=== PATIENT | female | born 1975 | race Caucasian/White ===

== ENCOUNTER 2017-01-12 03:16 | Observation (INO) ==
[2017-01-12] MEDS ORDERED: Ondansetron 4 MG/2 ML VIAL IVP ONE ×2 (03:49→18:34)
[2017-01-12] MEDS ORDERED: 0.9 % Sodium Chloride 1,000 ML IVC ONE (03:49)
[2017-01-12] MEDS ORDERED: *HR* Morphine 2 MG/ML SYRINGE IVP ONE (03:59)
[2017-01-12 04:32] LABS: Basophils % 0.4 %; Eosinophils % 0.2 %; Hematocrit 47.2 % (35.3-44.9); Hemoglobin 15.9 g/dL (11.5-15.4); Immature Granulocytes % 0.3 % (0-4); Lymphocytes # 1.4 K/mcL (0.6-4.6); Lymphocytes % 13.7 %; Mean Corpuscular HGB Conc 33.7 g/dL (31.6-35.5); Mean Corpuscular Volume 83.2 fL (83.0-100.0); Mean Platelet Volume 9.8 fL (9.4-12.4); Monocytes # 0.6 K/mcL (0.0-1.3); Monocytes % 5.5 %; Neutrophils # 8.2 K/mcL (1.6-8.9); Platelet Count 306 K/mcL (140-400); Red Blood Count 5.67 M/mcL (3.82-4.97); Red Cell Distribution Width 12.7 % (11.5-14.5); Segmented Neutrophils % 79.9 %
--- NOTE | 2017-01-12 04:41 | Emergency Department Note ---
Disposition Clinical Impression: Kidney stones, Hydronephrosis due to obstruction of ureter Disposition: Admitted As Inpatient Condition: Fair Time of Disposition: 05:58 Abdominal Pain HPI - General Chief Complaint: ED Abdominal Pain Stated Complaint: RLQ Pain Time Seen by Provider: 01/12/17 03:28 Source: patient Nursing Notes Reviewed: Yes Vital Signs Reviewed: Yes - History of Present Illness HPI Narrative: 42-year-old female presents the ED complaining of right lower quadrant pain. She stated that she was at work when all essentially had a sudden sharp right lower quadrant pain that is worse when she moves. She states it is 8 out of 10 and is nonradiating. She has tried taking Tylenol for the pain does not help. She she works at the [employer] stated that medical staff saw her there and recommended her come by EMS she denied that and said that she would have family drive her to the emergency department. She states nausea when the pain is really bad but no vomiting. She states no chest pain or shortness of breath. No fevers, burning with urination, diarrhea, constipation. She has not only had her tubes tied as her only abdominal surgery. She still has her appendix and gallbladder. She does not state that the pain is worse after meals. Pain Scale: 8 - Related Data Previous Rx's Medication Instructions Recorded Ibuprofen [Motrin] 400 mg PO Q6HR 7 Days 04/07/15 LORazepam [Ativan] 0.5 mg PO TID PRN #20 tablet 01/22/16 Amoxicillin 875 mg PO BID #20 tablet 08/14/16 Allergies Allergy/AdvReac Type Severity Reaction Status Date / Time losartan [From Cozaar] Allergy Hives Verified 01/12/17 03:20 Constitutional: Denies: fever, chills, weakness, weight change Eyes: Denies: eye pain, eye discharge, vision change ENT ED: Denies: ear pain, throat pain, dental pain, hearing loss, epistaxis, congestion, dysphagia Cardiovascular: Denies: chest pain, palpitations, dyspnea on exertion, edema, syncope Respiratory: Denies: cough, dyspnea, wheezes, hemoptysis, stridor Gastrointestinal: Reports: abdominal pain, nausea. Denies: vomiting, diarrhea, constipation, hematemesis, melena, hematochezia Genitourinary: Denies: dysuria, frequency, hematuria, discharge Musculoskeletal: Denies: back pain, neck pain, arthralgia, myalgia Integumentary: Denies: rash, abrasion, lesions Neurological: Denies: headache, weakness, numbness, paresthesias, confusion, abnormal gait, vertigo Psychiatric: Denies: anxiety, depression, suicidal thoughts, homicidal thoughts , auditory hallucinations, visual hallucinations Endocrine: Denies: fatigue Hematological/Lymphatic: Denies: easy bleeding, easy bruising Abdominal Pain PMH - Past Medical History Medical history: Reports: hypertension, other Female Surgical History: Reports: other Psychiatric history: Reports: anxiety, depression - Social History Smoking status: Never smoker Alcohol use: Reports: none Drug use: Reports: none Physical Exam - General General appearance: alert - Head Head exam: atraumatic, normocephalic, normal inspection - Eye Eye exam: Present: normal appearance, PERRL, EOMI - ENT ENT exam: normal exam, normal oropharynx, mucous membranes moist - Chest Chest inspection: Present: normal inspection, symmetric chest wall rise - Respiratory Respiratory exam: Present: normal lung sounds bilaterally - Cardiovascular Cardiovascular exam: Present: regular rate, normal rhythm, normal heart sounds - Abdominal Exam Abdominal exam: Present: soft, tenderness, normal bowel sounds, Lewis's sign, Rovsing's sign, tenderness at McBurney's Point. Absent: distention, guarding, rebound, rigidity Abdominal tenderness: Present: RLQ, moderate - Back Exam Back exam: Present: normal inspection, full ROM. Absent: tenderness, CVA tenderness (R), CVA tenderness (L) - Neurological Exam Neurological exam: Present: alert, oriented X3 - Skin Skin exam: Present: warm, dry, intact, normal color Course Course Narrative: 42-year-old female presents to the ED complaining of right lower quadrant pain that began all of a sudden. She still has all of her organs in her belly. We will do belly labs including lipase. We will also do urine and . We will start an IV and give her 1 L bag of fluids and Zofran for nausea and 2 mg of morphine for pain control. Severity CT of her abdomen and pelvis with contrast to look for possible appendicitis or any gallbladder pathology. Patient is okay with this plan. - Reevaluation(s) Reevaluation #1: Patient reevaluated after she got up to urinate. She states after moving the pain came back really bad. She still complaining of pain in the right lower quadrant. We will give her 1 mg of Dilaudid as the morphine did not seem to help her pain very much. She is still waiting to go to CT at this time. Time: 05:00 Reevaluation #2: Patient reevaluated after she returned from CT and stated her belly pain is still hurting. She is now getting the Dilaudid which will hopefully help her with her pain. Time: 05:35 Vital Signs Temperature 98.3 F 01/12/17 03:17 Pulse Rate 131 01/12/17 03:17 Respiratory Rate 18 01/12/17 03:17 Blood Pressure 165/106 01/12/17 03:17 O2 Sat by Pulse Oximetry 96 01/12/17 03:17 Temperature 98.1 F 01/12/17 06:48 Pulse Rate 99 01/12/17 06:48 Respiratory Rate 16 01/12/17 06:48 Blood Pressure 142/89 01/12/17 06:48 O2 Sat by Pulse Oximetry 98 01/12/17 06:48 Oxygen Delivery Oxygen Delivery Room Air Abdominal Pain - MDM Narrative Medical decision making narrative: 42-year-old female presents to the ED complaining of right lower quadrant pain. She stated there was all of a sudden and is very sharp. She did not know any vomiting but said she was nauseous and over the pain is really bad. She states no diarrhea or constipation as well as any shortness of breath or chest pains. She does not know any traveling outside the country or sick contacts at home. She has not changed her diet recently. She has never had any abdominal surgeries so this most likely could be appendicitis or gallbladder disease. We will do a CT scan of her abdomen and pelvis to look for any these pathologies. We will do basic labs including a lipase to see there are any abnormalities. We will also do a UA including urine . Although she has had her tubes tied. We will give her 1 L bag of fluids to help hydrate her and give her Zofran for nausea prophylaxis including 2 mg morphine for pain control. Currently awaiting labs and CT results. [id number]- patient reevaluated and stated that her pain is a lot better after the Dilaudid at this time. Labs came back only showing a possible UTI but due to the CT showing kidney stones we will not treat it now. They recommended a culture so the culture comes back urologist can recommend an antibiotic regimen. CT came back showing she had bilateral hydronephrosis with a 13 mm stone on the right side at the UPJ and a 3-4 mm stone in the left upper kidney pole. Called Dr. Alexandra urologist who stated that he would like to admit her under his service. He stated that this is a serious event and he needs to be taken care of now and to relay this to the patient. He states that he is going to come in and see her in the morning. And she should stay nothing by mouth as surgery is probably happening today. Patient understood all this. Patient agrees this plan. Patient admitted to Dr. Alexandra, urology. - Medical Records Medical records reviewed: Yes I reviewed the patient's medical records. - Lab Data Lab results reviewed: Yes I reviewed the patient's lab results. Result diagrams: 01/12/17 04:10 01/12/17 04:10 Lab Results 01/12/17 01/12/17 01/12/17 Range/Units 04:10 04:10 04:15 WBC 10.2 (4.3-11.1) K/mcL RBC 5.67 H (3.82-4.97) M/mcL Hgb 15.9 H (11.5-15.4) g/dL Hct 47.2 H (35.3-44.9) % MCV 83.2 (83.0-100.0) fL MCH 28.0 (28.0-33.3) pg MCHC 33.7 (31.6-35.5) g/dL RDW 12.7 (11.5-14.5) % Plt Count 306 (140-400) K/mcL MPV 9.8 (9.4-12.4) fL Immature Gran % 0.3 (0-4) % Seg Neutrophils % 79.9 % Lymphocytes % 13.7 % Monocytes % 5.5 % Eosinophils % 0.2 % Basophils % 0.4 % Neutrophils # 8.2 (1.6-8.9) K/mcL Lymphocytes # 1.4 (0.6-4.6) K/mcL Monocytes # 0.6 (0.0-1.3) K/mcL Eosinophils # 0.0 (0.0-0.6) K/mcL Basophils # 0.0 (0.0-0.2) K/mcL Sodium 137 (136-145) mEq/L Potassium 3.6 (3.5-4.5) mEq/L Chloride 101 (98-109) mEq/L Carbon Dioxide 27 (19-29) mEq/L BUN 12 (7-20) mg/dL Creatinine 1.03 (0.57-1.11) mg/dL Est GFR ( Amer) > 60 (> 60) Est GFR (Non-Af Amer) 59 L (> 60) BUN/Creatinine Ratio 12 (6-26) Glucose 132 H (70-99) mg/dL Calculated Osmolality 286 (280-300) Calcium 9.5 (8.6-10.8) mg/dL Total Bilirubin 0.4 (0.2-1.2) mg/dL Direct Bilirubin 0.1 (0.0-0.5) mg/dL Indirect Bilirubin 0.3 (0.0-1.2) mg/dL AST 17 (5-34) Units/L ALT 18 (0-55) Units/L Alkaline Phosphatase 93 (38-126) Units/L Serum Total Protein 7.6 (6.0-8.3) g/dL Albumin 3.9 (3.5-5.0) g/dL Globulin 3.7 H (2.4-3.5) g/dL Albumin/Globulin Ratio 1.1 (1.1-2.2) Amylase 45 (25-125) Units/L Lipase 14 (8-78) Units/L Urine Color Yellow (Yellow) Urine Clarity Clear (Clear) Urine pH 7.5 (5.0-8.0) pH Units Ur Specific [place] 1.016 (1.010-1.025) Urine Protein Negative (Neg-Trace) mg/dL Urine Glucose (UA) Normal (Normal) mg/dL Urine Ketones Negative (Negative) mg/dL Urine Blood Moderate H (Negative) Urine Nitrite Negative (Negative) Urine Bilirubin Negative (Negative) Urine Urobilinogen Normal (Normal) mg/dL Ur Leukocyte Esterase Moderate H (Negative) Urine Microscopic RBC 15-30 H (0-3) per hpf Urine Microscopic WBC 15-30 H (0-3) per hpf Ur Squamous Epith Cells Few (None-Few) per lpf Urine Bacteria Few (None-Few) per hpf Hyaline Casts None Seen (None-Few) per lpf Ur Culture Indicated? YES A (NO) Urine Test (Negative) 01/12/17 Range/Units 04:15 WBC (4.3-11.1) K/mcL RBC (3.82-4.97) M/mcL Hgb (11.5-15.4) g/dL Hct (35.3-44.9) % MCV (83.0-100.0) fL MCH (28.0-33.3) pg MCHC (31.6-35.5) g/dL RDW (11.5-14.5) % Plt Count (140-400) K/mcL MPV (9.4-12.4) fL Immature Gran % (0-4) % Seg Neutrophils % % Lymphocytes % % Monocytes % % Eosinophils % % Basophils % % Neutrophils # (1.6-8.9) K/mcL Lymphocytes # (0.6-4.6) K/mcL Monocytes # (0.0-1.3) K/mcL Eosinophils # (0.0-0.6) K/mcL Basophils # (0.0-0.2) K/mcL Sodium (136-145) mEq/L Potassium (3.5-4.5) mEq/L Chloride (98-109) mEq/L Carbon Dioxide (19-29) mEq/L BUN (7-20) mg/dL Creatinine (0.57-1.11) mg/dL Est GFR ( Amer) (> 60) Est GFR (Non-Af Amer) (> 60) BUN/Creatinine Ratio (6-26) Glucose (70-99) mg/dL Calculated Osmolality (280-300) Calcium (8.6-10.8) mg/dL Total Bilirubin (0.2-1.2) mg/dL Direct Bilirubin (0.0-0.5) mg/dL Indirect Bilirubin (0.0-1.2) mg/dL AST (5-34) Units/L ALT (0-55) Units/L Alkaline Phosphatase (38-126) Units/L Serum Total Protein (6.0-8.3) g/dL Albumin (3.5-5.0) g/dL Globulin (2.4-3.5) g/dL Albumin/Globulin Ratio (1.1-2.2) Amylase (25-125) Units/L Lipase (8-78) Units/L Urine Color (Yellow) Urine Clarity (Clear) Urine pH (5.0-8.0) pH Units Ur Specific [place] (1.010-1.025) Urine Protein (Neg-Trace) mg/dL Urine Glucose (UA) (Normal) mg/dL Urine Ketones (Negative) mg/dL Urine Blood (Negative) Urine Nitrite (Negative) Urine Bilirubin (Negative) Urine Urobilinogen (Normal) mg/dL Ur Leukocyte Esterase (Negative) Urine Microscopic RBC (0-3) per hpf Urine Microscopic WBC (0-3) per hpf Ur Squamous Epith Cells (None-Few) per lpf Urine Bacteria (None-Few) per hpf Hyaline Casts (None-Few) per lpf Ur Culture Indicated? (NO) Urine Test Negative (Negative) - Radiology Data Radiology results reviewed: Yes I reviewed the patient's radiology results. Attestation Statement - Attestation Attestation: I, Steven Calderon MD, personally evaluated this patient and discussed their management with the resident physician. I reviewed the resident's note and agree with the documented findings, medical decision making, and plan of care. 42-year-old female presents to the emergency department with a complaint of acute onset of right lower quadrant abdominal pain while she was at work about 11 PM tonight. On examination patient is a well-developed well-nourished female in no acute distress but does appear to be in moderate discomfort. She is alert and oriented 3. There is no cyanosis or diaphoresis. There is moderate tenderness to palpation in the right lower quadrant with no guarding or rebound tenderness. No CVA tenderness noted. Labs reviewed. CT the abdomen and pelvis shows moderate right hydronephrosis with a 6 x 13 mm stone at the right UPJ. There is also mild left hydronephrosis with an intrarenal stone. No ureteral stone seen. Dr. Madison discussed the case with the urologist on-call, Dr. Alexandra, and he accepted admission of the patient to his service.
[2017-01-12 04:48] LABS: Alanine Aminotransferase 18 Units/L (0-55); Albumin 3.9 g/dL (3.5-5.0); Albumin/Globulin Ratio 1.1 (1.1-2.2); Alkaline Phosphatase 93 Units/L (38-126); Amylase 45 Units/L (25-125); Aspartate Amino Transferase 17 Units/L (5-34); BUN/Creatinine Ratio 12 (6-26); Bilirubin,Direct 0.1 mg/dL (0.0-0.5); Bilirubin,Indirect 0.3 mg/dL (0.0-1.2); Bilirubin,Total 0.4 mg/dL (0.2-1.2); Blood Urea Nitrogen 12 mg/dL (7-20); Calcium 9.5 mg/dL (8.6-10.8); Carbon Dioxide 27 mEq/L (19-29); Chloride 101 mEq/L (98-109); Globulin 3.7 g/dL (2.4-3.5); Glucose 132 mg/dL (70-99); Lipase 14 Units/L (8-78); Osmolality,Calculated 286 (280-300); Potassium 3.6 mEq/L (3.5-4.5); Sodium 137 mEq/L (136-145); Total Protein 7.6 g/dL (6.0-8.3); eGFR For African Americans > 60 (> 60); eGFR For Non-African Americans 59 (> 60)
[2017-01-12 04:54] LABS: Bilirubin,Urine Negative (Negative); Blood,Urine Moderate (Negative); Clarity,Urine Clear (Clear); Color,Urine Yellow (Yellow); Glucose,Urine (UA) Normal (Normal); Ketones,Urine Negative (Negative); Leukocyte Esterase,Urine Moderate (Negative); Nitrite,Urine Negative (Negative); PH,Urine 7.5 pH Units (5.0-8.0); Protein,Urine Negative (Neg-Trace); Specific Gravity,Urine 1.016 (1.010-1.025); Urobilinogen,Urine Normal (Normal)
[2017-01-12 04:57] LABS: Bacteria,Urine Few per hpf (None-Few); Hyaline Casts,Urine None Seen per lpf (None-Few); RBC,Urine 15-30 per hpf (0-3); Squamous Epithelial Cell,Urine Few per lpf (None-Few); WBC,Urine 15-30 per hpf (0-3)
[2017-01-12] MEDS ORDERED: *HR* HYDROmorphone (PF) 1 MG/ML SYRINGE IVP ONE (04:58)
[2017-01-12] MEDS ORDERED: Ondansetron 4 MG/2 ML VIAL IVP PRN ×2 (06:44→20:38)
[2017-01-12] MEDS ORDERED: *HR* HYDROmorphone (PF) 1 MG/ML SYRINGE IVP PRN ×2 (06:44→20:38)
[2017-01-12] MEDS ORDERED: Naloxone 0.4 MG/ML INJ IVP PRN ×2 (06:44→20:38)
[2017-01-12] MEDS ORDERED: *HR* Morphine 2 MG/ML SYRINGE IVP PRN ×2 (06:44→20:38)
[2017-01-12] MEDS ORDERED: 0.9 % Sodium Chloride 1,000 ML IVC SCH ×2 (06:45→20:38)
--- NOTE | 2017-01-12 06:51 | Urology History & Physical ---
Date of Encounter: 01/12/17 Time of Encounter: 06:49 Assessment and Plan (1) Hydronephrosis due to obstruction of ureter Current Visit: Yes Status: Acute I reviewed the CT scan and do not feel the left hydroureter is clinically significant. stone is nonobstructing. right stone is obstructing and causing pain. will plan for surgical intervention. we discussed that I will attempt a ureteroscopic stone extraction but may only be able to place a stent if the scope will not pass. she did experience a ureteral injury during a previous stone extraction and I will be cautious and stent if any resistance. risks for infection, stricture, injury to urinary tract, stent discomfort all discussed. History of Present Illness Chief complaint: flank pain HPI: Ms. Vazquez is a 42 year old female presents to the ER with severe pain. CT scan with a 1.3 cm left UPJ stone. possible left hydronephrosis with a nonobstructing stone. renal function preserved. strong hx of stones. at age 12 ureteral perforation (right?) . no fever. Past Med Surg Social Fam HX - Past Medical History Medical history: hypertension, other Psychiatric history: anxiety, depression - Past Surgical History Surgical History: other - Social History Smoking Status: Never smoker Smokeless Tobacco Status: No Alcohol use: none Drug use: none Medications and Allergies Ibuprofen [Motrin] 400 mg PO Q6HR 7 Days 04/07/15 [Rx] LORazepam [Ativan] 0.5 mg PO TID PRN #20 tablet 01/22/16 [Rx] Amoxicillin 875 mg PO BID #20 tablet 08/14/16 [Rx] Allergies losartan [From Cozaar] Allergy (Verified 01/12/17 03:20) Hives Review of Systems - Constitutional fatigue, no chills, no fever(s) - EENT Nose, mouth and throat: no dizziness - Cardiovascular no chest pain - Respiratory no cough - Gastrointestinal abdominal pain, nausea - Genitourinary Genitourinary: flank pain - Musculoskeletal back pain - Integumentary no erythema - Neurological no confusion - Psychiatric no anxiety - Hematologic/Lymphatic no easy bleeding - Allergic/Immunologic no throat swelling Exam Initial Vital Signs Temp Pulse Resp BP Pulse Ox 98.3 F 131 18 165/106 96 01/12/17 03:17 01/12/17 03:17 01/12/17 03:17 01/12/17 03:17 01/12/17 03:17 - General physical appearance Present: well developed, moderate pain - Eyes Present: PERRL - ENT Present: normal nares - Neck Present: no masses - Respiratory Present: normal respiratory effort - Cardiovascular Cardiovascular exam IM: RRR - Abdomen Abdomen: Present: soft - Integumentary Present: no rash - Neurologic Present: normal coordination. Absent: disoriented, confused - Musculoskeletal Present: normal gait Urology Results - Labs 01/12/17 04:10 01/12/17 04:10 Abnormal lab results RBC 5.67 M/mcL (3.82-4.97) H 01/12/17 04:10 Hgb 15.9 g/dL (11.5-15.4) H 01/12/17 04:10 Hct 47.2 % (35.3-44.9) H 01/12/17 04:10 Est GFR (Non-Af Amer) 59 (> 60) L 01/12/17 04:10 Glucose 132 mg/dL (70-99) H 01/12/17 04:10 Globulin 3.7 g/dL (2.4-3.5) H 01/12/17 04:10 Urine Blood Moderate (Negative) H 01/12/17 04:15 Ur Leukocyte Esterase Moderate (Negative) H 01/12/17 04:15 Urine Microscopic RBC 15-30 per hpf (0-3) H 01/12/17 04:15 Urine Microscopic WBC 15-30 per hpf (0-3) H 01/12/17 04:15 Ur Culture Indicated? YES (NO) A 01/12/17 04:15 All other labs normal.
[2017-01-12] MEDS: Ketorolac 15 MG/ML VIAL IVP PRN ×3 (07:48→19:44)
[2017-01-12] MEDS ORDERED: Scopolamine Patch 1.5 MG PATCH.TD72 ONE (16:59)
--- NOTE | 2017-01-12 17:04 | Anesthesia Evaluation PreOp ---
Date of Encounter: 01/12/17 Time of Encounter: 17:02 - Past History Planned Operation: Right ureteroscopic stone with laser and stent Cardiac History: HTN Pulmonary History: Denies Any Significant HX REGISTERED NURSE MIDWIFE History: Denies Any Significant HX Other Medical History: Other (BMI 40.0) Anesthesia History: No Prior Anesthetic Complications Alcohol Use: none Drug use: none Medications and Allergies Amlodipine Besylate 10 mg PO DAILY 01/12/17 [History] Ibuprofen [Motrin] 400 - 800 mg PO Q6HR PRN 01/12/17 [History] Naltrexone HCl/Bupropion HCl [Contrave ER 8-90 mg Tablet] 2 tab PO BID 01/12/17 [History] hydroCHLOROthiazide [Hydrochlorothiazide] 25 mg PO DAILY 01/12/17 [History] Allergies losartan [From Cozaar] Allergy (Verified 01/12/17 03:20) Hives - Meds/Allergy Pre-op Review Medications Reviewed: Yes Allergies Reviewed: Yes Beta Blockers on Current Med List: No Anesthesia Results - Labs 01/12/17 04:10 01/12/17 04:10 - Imaging EKG: report reviewed, image reviewed (SR with first degree AVB) Anesthesia Exam Last Vital Signs Temp 98.5 F 01/12/17 14:45 Pulse 75 01/12/17 14:45 Resp 16 01/12/17 14:45 BP 135/87 01/12/17 14:45 Pulse Ox 98 01/12/17 14:45 Weight: 93 kg NPO (# of Hours): >> 8 hrs - HEENT Pupil (Motor): Pupils equal, EOMI Mallampati: III Teeth: Normal Oral Opening: Greater than 3 - REGISTERED NURSE MIDWIFE LOC: Oriented REGISTERED NURSE MIDWIFE Motor: Normal RUE, Normal LUE, Normal RLE, Normal LLE, Normal Face - Cardiac Rhythm: Regular Murmur: None - Pulmonary Breath Sounds: bilateral Clear Respiratory Effort: Symmetrical Anesthesia Assess/Plan ASA Score: 3 (BMI 40, HTN) Modified Oren Scale for Level of Consciousness: Cooperative, oriented, and tranquil Anesthetic Plan: General Monitoring Plan: Standard Monitors Recovery Plan: PACU
[2017-01-12] MEDS ORDERED: *HR* Midazolam HCl 2 MG/2 ML VIAL ONE (17:58)
[2017-01-12] MEDS ORDERED: *HR* FentaNYL (PF) 100 MCG/2 ML VIAL ONE (17:58)
[2017-01-12] MEDS ORDERED: Dexamethasone 4 MG/ML VIAL ONE (17:59)
[2017-01-12] MEDS ORDERED: Ondansetron 4 MG/2 ML VIAL ONE (17:59)
[2017-01-12] MEDS ORDERED: Lidocaine -MPF 2% 2 ML VIAL ONE (17:59)
[2017-01-12] MEDS ORDERED: *HR* Succinylcholine 200 MG/10 ML VIAL IVP ONE (17:59)
[2017-01-12] MEDS ORDERED: Lidocaine -MPF 4% 5 ML AMPUL ONE (18:01)
[2017-01-12] MEDS ORDERED: *HR* Propofol 200 MG/20 ML VIAL IVP ONE (18:26)
[2017-01-12] MEDS ORDERED: *HR* Promethazine 25 MG/ML VIAL IVP PRN (18:34)
[2017-01-12] MEDS ORDERED: Dexamethasone 4 MG/ML VIAL IVP ONE (18:34)
[2017-01-12] MEDS ORDERED: *HR* Labetalol 20 MG/4 ML SYRINGE IVP PRN (18:34)
[2017-01-12] MEDS ORDERED: Lacri-Lube 3.5 GM TUBE ONE (18:57)
--- NOTE | 2017-01-12 19:10 | Operative Note ---
Date of procedure: 01/12/17 Pre-op diagnosis: right UPJ stone 1.3 cm Post-op diagnosis: same Procedure: Right ureteroscopic stone extraction with holmium laser lithotripsy. Right retrograde pyelogram. Right ureteral stent placement. Anesthesia: GETA Surgeon: Nestor Alexandra Estimated blood loss (cc): 0 Specimen: Right ureteral stone Condition: stable Disposition: PACU Procedure in Detail: PROCEDURE IN DETAIL: Patient was taken back to the operating room, positioned supine on the operating table. Anesthesia was applied without complication. They were moved into dorsal lithotomy. Careful attention was maintained to cushion all pressure points for patient's safety. They were prepped and draped in sterile fashion. Time-out was performed with the proper patient and procedure. A 21-[place] rigid cystoscope was inserted into the bladder without difficulty. Systematic examination of bladder revealed no abnormalities. The ureteral orifice was cannulated using a 5-[place] ureteral Catheter and a retrograde pyelogram was performed using Isovue. A filling defect was identified which corresponded to the stone. At that point, a zip wire was placed through the 5-[place] and confirmed in the renal pelvis with fluoroscopy. An 8-10 dilator was then placed over the zip wire to passively dilate the ureteral orifice. A flexible ureteroscope was passed over the zip wire and up into the renal pelvis. Stone was encountered and I felt it required fragmentation. A 200 micron holmium laser fiber on a dusting setting was used to fragment the stone into multiple pieces. The larger fragment was basketed with a 1.9 basket. All other stone was dusted into less than 1 mm fragments. I wanted to minimize the number of trips and manipulation of her ureter secondary to her previous ureteral injury. A 4.8 x 26 ureteral stent was placed over the zip wire under fluoroscopy without complication. The bladder was drained . Stone sent for analysis. The string was left attached to the stent and secured to the patient for easy removal in approximately 72 hours
[2017-01-12] MEDS ORDERED: *HR* HYDROmorphone (PF) 1 MG/ML SYRINGE ONE ×2 (19:11→19:26)
[2017-01-12] MEDS: *HR* HYDROmorphone (PF) 1 MG/ML SYRINGE IVP PRN ×4 (19:11→19:37)
--- NOTE | 2017-01-12 19:13 | Discharge Summary ---
Date of Encounter: 01/12/17 Time of Encounter: 19:10 - Discharge Diagnosis (1) Hydronephrosis due to obstruction of ureter Priority: Primary Status: Resolved - Discharge Medications Prescriptions: HYDROcodone/Acet 5/325 mg [Proctor 5-325 mg] 1 tab PO Q4H PRN #15 tab PRN Reason: Pain Phenazopyridine HCl [Pyridium] 200 mg PO TIDAC PRN #15 tab PRN Reason: burning with urination Home Medications: Amlodipine Besylate 10 mg PO DAILY 01/12/17 [History] HYDROcodone/Acet 5/325 mg [Proctor 5-325 mg] 1 tab PO Q4H PRN #15 tab 01/12/17 [Rx ] Ibuprofen [Motrin] 400 - 800 mg PO Q6HR PRN 01/12/17 [History] Naltrexone HCl/Bupropion HCl [Contrave ER 8-90 mg Tablet] 2 tab PO BID 01/12/17 [History] Phenazopyridine HCl [Pyridium] 200 mg PO TIDAC PRN #15 tab 01/12/17 [Rx] hydroCHLOROthiazide [Hydrochlorothiazide] 25 mg PO DAILY 01/12/17 [History] Allergies/Adverse Reactions: Allergies losartan [From Cozaar] Allergy (Verified 01/12/17 03:20) Hives Date of admission: 01/12/17 06:11 Primary care physician: Mary Kaminski Discharging clinician: Nestor Alexandra Anticipated date of discharge: 01/12/17 - Patient Status Disposition: Home, Self-Care Condition: Good Functional capacity at discharge: independent ambulation Overall status at discharge: patient is progressing back to baseline - Discharge Instructions Follow Up With: Mary Kaminski MD [Primary Care Provider] - Nestor Alexandra MD [Partnered Physician] - (see patient instructions) Additional Instructions: Expect stent discomfort including urgency, frequency, burning on urination, flank discomfort especially with urination, blood in the urine. Call if any of these symptoms or excessive or fever over 101 Okay to remove stent at home on Wednesday by pulling the string until the entire stent is removed. If unable to remove stent at home this can be done in the urology office on Wednesday If stent is removed at home, expect increasing flank discomfort for approximately 24 hours but then symptoms will improve Follow-up in 3-4 weeks or when necessary sooner Please provide work excuse until Wednesday Okay to resume home medications - Diet and Activity Activity: return to work once cleared by your PCP/specialist (Please provide work excuse until Wednesday) Diet: advance to your usual diet - Hospital Course Hospital course: Ms. Vazquez is a 42 year old female admitted with an obstructing right proximal ureteral stone. Successful stone extraction on 01/12/2017. No evidence of infection, sepsis. Plan to discharge when patient symptoms are controlled. Okay to discharge night or in a.m. - Time Spent with Patient Total time spent providing and/or coordinating discharge services: Exam Initial Vital Signs Temp Pulse Resp BP Pulse Ox 98.3 F 131 18 165/106 96 01/12/17 03:17 01/12/17 03:17 01/12/17 03:17 01/12/17 03:17 01/12/17 03:17 - General physical appearance Present: well developed, no distress
--- NOTE | 2017-01-12 20:32 | Anesthesia Evaluation Post Op ---
Date of Encounter: 01/12/17 Time of Encounter: 20:31 - Vital Signs Vital Signs: Vital Signs/O2 Sat/Glucose, Most Current Temp Pulse Resp BP Pulse Ox 01/12/17 20:29 98.2 F 73 16 131/87 97 01/12/17 20:28 98.2 F 75 16 129/93 97 01/12/17 19:55 98 F 71 16 97 01/12/17 19:45 76 16 121/96 96 01/12/17 19:35 98 F 71 16 137/90 98 01/12/17 19:25 72 16 137/95 98 01/12/17 19:15 71 18 131/88 99 01/12/17 19:05 98.4 F 87 16 138/95 98 - Lungs Lungs: Clear Ascult./Percussion - Airway Airway: Non-obstructed - Cardiovascular Regular Rate - Mental Status Mental Status: Alert & Oriented, Answers Appropriately - Pain Pain Scale: 2 - Nausea Vomiting Nausea Vomiting: Not Present - Hydration Hydration: Tolerates oral liquids - Discharge PostOp Status: Transfer Patient to floor
[2017-01-12] MEDS ORDERED: *HR* OxyCODONE/APAP 5/325 TABLET PO PRN (20:38)
[2017-01-12] MEDS ORDERED: Ketorolac 15 MG/ML VIAL IVP PRN (20:38)
[2017-01-12] MEDS ORDERED: NALTREXONE HCL PO SCH (21:00)
[2017-01-12] MEDS ORDERED: [UNRECOGNIZED DRUG - OTHER] PO SCH (21:00)
[2017-01-12] MEDS ORDERED: BUPROPION HCL PO SCH (21:00)
[2017-01-12 21:27] VITALS: BP 141/87
[2017-01-13] MEDS ORDERED: hydroCHLOROthiazide 25 MG TABLET PO SCH (09:00)
[2017-01-13] MEDS ORDERED: NON-FORMULARY MEDICATION 1 EACH EACH (Amlodipine Besylate [Amlodipine Besylate] 10 MG) PO SCH (09:00)
== END 2017-01-12 22:15 | disposition home or self-care (01) ==
LOC: 3BNU 03:16 → EMEROO 03:16 → 3BNU 06:19
PROVIDERS: ADMIT Urology; ATTEND Urology